=== PATIENT | male | born 1950 | race African-American/Black ===

== ENCOUNTER 2017-12-04 22:06 | Emergency (ER) | payer SELFPAY ==
[~2017-12-04] VITALS: Ht 177.8 cm; Wt 86.0 kg
[2017-12-04 22:15] VITALS: BP 148/99
== END 2017-12-04 23:52 | disposition left against medical advice (07) ==
LOC: ER 23:42
DX: Z53.21 Procedure and treatment not carried out due to patient leaving prior to being seen by health care provider (principal)

== ENCOUNTER 2024-06-03 23:54 | Emergency (ER) | payer SELFPAY ==
[~2024-06-03] VITALS: Ht 177.8 cm; Wt 77.0 kg
[2024-06-04 00:17] VITALS: O2SAT 100
[2024-06-04] MEDS: IBUPROFEN 600MG TABLET PO ONE (01:25)
[2024-06-04] MEDS ORDERED: IBUP-2028 MT (04:27)
[2024-06-04 04:51] VITALS: BP 147/93; PULSE 64; RESP 14; TEMP 97.5
== END 2024-06-04 05:33 | disposition home or self-care (01) ==
LOC: ER 23:57
DX: S46.911A Strain of unspecified muscle, fascia and tendon at shoulder and upper arm level, right arm, initial encounter (principal); I48.91 Unspecified atrial fibrillation; Z86.73 Personal history of transient ischemic attack (TIA), and cerebral infarction without residual deficits; W18.39XA Other fall on same level, initial encounter; Y93.89 Activity, other specified; Y92.89 Other specified places as the place of occurrence of the external cause; Y99.8 Other external cause status
CPT/HCPCS: 71045; 73030; 99284